=== PATIENT | male | born 1955 | race Caucasian/White ===

== ENCOUNTER → 2016-05-03 | Outpatient (CLI) | payer BC ==
[~2016-05-03] MED LIST: ABL/5 PO; AMPH30CA3 PO; AMPH30TA2 PO; CLX20 PO; ERGO1CAP35 PO; PRLSR20 PO; TAMS0.4C38 PO
[2016-05-03 11:49] LABS: CHOLESTEROL/HDL RATIO 3.8; FERRITIN 320.1 ng/ml (8.0-388.0)
== END | disposition home or self-care (01) ==
LOC: C.LAB 09:42
DX: E78.5 Hyperlipidemia, unspecified (principal); E61.1 Iron deficiency

== ENCOUNTER → 2017-01-09 | Outpatient (CLI) | payer BC ==
[2017-01-09 16:00] LABS: BLOOD UREA NITROGEN 20 mg/dl (7-18); BUN/CREATININE RATIO 15.1 (10-20); CALCIUM 9.3 mg/dl (8.5-10.1); CARBON DIOXIDE 26 mmol/L (21-32); CHLORIDE 108 mmol/L (98-107); GLUCOSE 96 mg/dl (70-99); POTASSIUM 4.1 mmol/L (3.5-5.1); SODIUM 139 mmol/L (136-145)
== END | disposition home or self-care (01) ==
LOC: C.LAB 14:03
DX: K21.9 Gastro-esophageal reflux disease without esophagitis (principal); E55.9 Vitamin D deficiency, unspecified; E53.8 Deficiency of other specified B group vitamins

== ENCOUNTER 2023-01-23 10:33 | Observation (INO) ==
--- NOTE | 2022-12-21 15:26 | PAT Medication Instructions ---
Medication Instructions Date of Service December 21, 2022 Home Medications albuterol sulfate 90 mcg/actuation aerosol inhaler 2 puff inhalation Q6H PRN SHORT OF BREATH bupropion HCl 150 mg 24 hr tablet, extended release 150 mg PO QAM cholecalciferol (vitamin D3) 125 mcg (5,000 unit) capsule 250 mcg PO DAILY citalopram 40 mg tablet 40 mg PO QAM ferrous sulfate 134 mg (27 mg iron) tablet 325 mg PO Q2D rosuvastatin 5 mg tablet (Crestor) 5 mg PO QPM aripiprazole 5 mg tablet (Abilify) 5 mg PO QAM cyanocobalamin (vitamin B-12) 500 mcg tablet 500 mcg PO QAM tamsulosin 0.4 mg capsule 0.4 mg PO QAM celecoxib 100 mg capsule (Celebrex) 100 mg PO BID methylphenidate HCl 20 mg tablet (Ritalin) 20 mg PO Q4H pantoprazole 40 mg tablet,delayed release (Protonix) 40 mg PO QAM ASK your surgeon for instructions celecoxib 100 mg capsule (Celebrex) 100 mg PO BID ASK your prescriber and surgeon aripiprazole 5 mg tablet (Abilify) 5 mg PO QAM DO NOT take the morning of surgery cholecalciferol (vitamin D3) 125 mcg (5,000 unit) capsule 250 mcg PO DAILY ferrous sulfate 134 mg (27 mg iron) tablet 325 mg PO Q2D cyanocobalamin (vitamin B-12) 500 mcg tablet 500 mcg PO QAM methylphenidate HCl 20 mg tablet (Ritalin) 20 mg PO Q4H Take morning of surgery With a small sip of water, OTHERWISE NOTHING TO EAT OR DRINK AFTER MIDNIGHT: albuterol sulfate 90 mcg/actuation aerosol inhaler 2 puff inhalation Q6H PRN SHORT OF BREATH (use if needed; please bring with you to hospital day of surgery if possible) bupropion HCl 150 mg 24 hr tablet, extended release 150 mg PO QAM citalopram 40 mg tablet 40 mg PO QAM tamsulosin 0.4 mg capsule 0.4 mg PO QAM pantoprazole 40 mg tablet,delayed release (Protonix) 40 mg PO QAM Take evening before surgery albuterol sulfate 90 mcg/actuation aerosol inhaler 2 puff inhalation Q6H PRN SHORT OF BREATH (if needed) rosuvastatin 5 mg tablet (Crestor) 5 mg PO QPM Other Notes If you have any questions please call us at [phone] or [phone] or [phone] or [phone]
--- NOTE | 2022-12-28 11:16 | Anesthesiology Consultation ---
Date of Service December 28, 2022 Assessment & Plan (1) Encounter for pre-operative examination: - Infectious disease screening: Per assessment on 12/28/22: No known infectious disease contacts or current infectious disease symptoms. No noted Covid positive test result in past 90 days. - Outpatient joint assessment: Pt currently scheduled for inpatient pathway. If surgeon requests review for outpatient joint pathway, patient is not recommended candidate for outpatient joint program from anesthesia standpoint based on available information. Chart Review Chart Review: Acceptable Risk for Surgery and Patient seen in Pre Admission Testing Teaching & Discussion Pre-Anesthesia Teaching/Discussion Notes: Instructed NPO after midnight before surgery,except medications with 15 cc of water. Medication instructions provided according to the PAT guidelines. History Surgery Operation Date: 01/23/23 07:00 Proposed Procedures p Right Total Knee Arthroplasty - Earle Conner MD Height/Weight Height: 5 ft 7 in Weight: 100.6 kg Allergies Allergy/AdvReac Type Severity Reaction Status Date / Time No Known Allergies Allergy Verified 12/20/22 11:32 Medications Home Medications Medication Instructions Recorded Confirmed Last Taken albuterol sulfate 90 mcg/actuation 2 puff inhalation Q6H PRN SHORT OF 04/17/21 12/20/22 Unknown aerosol inhaler BREATH' bupropion HCl 150 mg 24 hr tablet, 150 mg PO QAM 04/17/21 12/20/22 04/19/21 extended release cholecalciferol (vitamin D3) 125 250 mcg PO DAILY 04/17/21 12/20/22 04/19/21 mcg (5,000 unit) capsule citalopram 40 mg tablet 40 mg PO QAM 04/17/21 12/20/22 04/19/21 ferrous sulfate 134 mg (27 mg 325 mg PO Q2D 04/17/21 12/20/22 04/19/21 iron) tablet rosuvastatin 5 mg tablet (Crestor) 5 mg PO QPM 04/17/21 12/20/22 04/19/21 aripiprazole 5 mg tablet (Abilify) 5 mg PO QAM 04/18/21 12/20/22 04/19/21 cyanocobalamin (vitamin B-12) 500 500 mcg PO QAM 04/18/21 12/20/22 04/19/21 mcg tablet tamsulosin 0.4 mg capsule 0.4 mg PO QAM 02/04/0812/20/22 04/19/21 celecoxib 100 mg capsule (Celebrex) 100 mg PO BID 12/20/22 12/20/22 Unknown methylphenidate HCl 20 mg tablet 20 mg PO Q4H 12/20/22 12/20/22 Unknown (Ritalin) pantoprazole 40 mg tablet,delayed 40 mg PO QAM 12/20/22 12/20/22 Unknown release (Protonix) Past Medical History Medical History ADHD Anxiety and depression Arthritis Asthma BPH (benign prostatic hyperplasia) Calcium pyrophosphate deposition disease (CPPD) Elevated cholesterol GERD (gastroesophageal reflux disease) History of COVID-19 02/2020- no current symptoms Hx of Lyme disease Hypophosphatemia FANI (obstructive sleep apnea) No current device, "no symptoms anymore" Right knee DJD Vasovagal syncope 2 episodes (once as teen after blood draw, second several years ago after carpal tunnel surgery- stood up to put pants on to go home and passed out), no subsequent/recent issues Exercise / Class Metabolic Activity II 4-5 Yardwork/Stairs/Walk up hill (one FS (no CP, no SOB)) Past Family History Family History Father Family history of diabetes mellitus Other No family history of adverse response to anesthesia Past Surgical History Surgical History H/O carpal tunnel repair R/L H/O colonoscopy with polypectomy History of esophagogastroduodenoscopy (EGD) EGD (04/20/21): MAC at [facility] History of left knee replacement History of nasal septoplasty History of tooth extraction S/P trigger finger release Left hand Past Anesthesia History No Hx of Anesthesia Complications and No Family Hx of Anesthesia Complications History of PONV No Hx of PONV and No Hx of Motion Sickness Social History Smoking Status: Former smoker tobacco type: cigarettes Do You Dip or Chew Tobacco: No Smoking End Date: Quit 7 years ago Hx Alcohol Use: No Hx Substance Use: No substance use type: does not use Review of Systems Patient denies chest pain, shortness of breath, dyspnea on exertion, fever, chills, cough, wheezing, palpitations. Physical Exam Vital Signs VITALS BP 120/70 P 731 TEMP 98.3 SP02 94%RA RESP 18 PHYSICAL Full cervical extension range of motion. Full TMJ range of motion. TMD 3 finger breaths Mallampati Score 3 (large tongue) Dentition: intact,+ bridges Lungs: clear throughout to auscultation Cardiac: regular rate and rhythm, no murmurs noted Spine: normal Carotid arteries: negative bruit Extremities: no LE edema Short, thick neck Lab Results Anesthesia Preop Results Results Anesthesia Widget: WBC 6.30 K/ul (4.8-10.8) 12/28/22 Hgb 14.2 g/dl (14.0-18.0) 12/28/22 Hct 40.6 % (42.0-52.0) L 12/28/22 Plt 287 K/uL (130-400) 12/28/22 Na 139 mmol/L (136-145) 12/28/22 K 4.0 mmol/L (3.5-5.1) 12/28/22 Cl 108 mmol/L (98-107) H 12/28/22 CO2 25 mmol/L (21-32) 12/28/22 BUN 27 mg/dl (6-23) H 12/28/22 Creat 1.24 mg/dl (0.6-1.4) 12/28/22 Glucose Level 98 mg/dl (70-99(Fasting)) 12/28/22 PT 10.9 Seconds (9.0-12.0) 12/28/22 PTT 26.0 Seconds (21.0-31.0) 12/28/22 INR 1.0 (0.9-1.1) 12/28/22 Blood Type O Negative 12/28/22 Antibody Screen NEGATIVE 12/28/22 Testing Electrocardiogram Date: 12/28/22 Findings: + NSR @ (70) Chest X-Ray Date: 12/28/22 FINDINGS: No pneumothorax. No pleural effusions. There is a punctate calcified granuloma within the right lung base, unchanged. Otherwise, the right lung is clear. Stable linear scarlike densities within the left lung base with slight elevation of the left hemidiaphragm. This is also similar to the prior study. No new focal lung consolidations to suggest pneumonia. No evidence for pulmonary edema. The cardiac silhouette is normal in size. IMPRESSION: No significant change compared to the prior study. No acute process.
--- NOTE | 2023-01-19 10:51 | History & Physical Report ---
Date of Service January 19, 2023 Assessment & Plan (1) Right knee DJD: 67-year-old gentleman with multiple medical comorbidities 8 years out from left knee replacement with advanced medial compartment arthritis of his right knee. He is really not Enspryng further conservative management. Happy with the left knee would just like to have his right knee replaced. Plan: Taken to the operating room do a right total knee replacement. The risks Mente this procedure explained the patient include not limited to DVT PE infection neurological injury vascular bleeding palm pain limb range of motion stiffness fairly with symptoms incomplete relief of symptoms need for further surgery in the future etc. Patient understands and desires to proceed. Informed consent was obtained. We will plan on stay in the hospital overnight. Likely discharge postoperative day 1. Plan on DVT prophylaxis including thigh- high teds, SCDs, aspirin twice a day. (2) History of left knee replacement: History of Present Illness Chief Complaint: . Right knee pain and discomfort. Primary Care Provider: Luis Enrique Martinez DO . Patient is a 67-year-old gentleman who presents for surgical treatment of his right knee. He is about 8 years out from a left knee replacement which was done well. Over the past several years he developed similar symptoms right knee. Describes a global pain in his knee. This become more debilitating particular over the past year. He is taken oral medicines without much relief. Not really any other treatment. He is try to maintain an activity level but have more difficulty doing this. More he is up and on it the more it hurts. Limps more today goes on. Happy with the left knee would like to have his right knee replaced. Allergies Allergy/AdvReac Type Severity Reaction Status Date / Time No Known Allergies Allergy Verified 12/20/22 11:32 Home Medications Medication Instructions Recorded Confirmed Type albuterol sulfate 90 mcg/actuation 2 puff inhalation Q6H PRN SHORT OF 04/17/21 12/20/22 History aerosol inhaler BREATH' bupropion HCl 150 mg 24 hr tablet, 150 mg PO QAM 04/17/21 12/20/22 History extended release cholecalciferol (vitamin D3) 125 250 mcg PO DAILY 04/17/21 12/20/22 History mcg (5,000 unit) capsule citalopram 40 mg tablet 40 mg PO QAM 04/17/21 12/20/22 History ferrous sulfate 134 mg (27 mg 325 mg PO Q2D 04/17/21 12/20/22 History iron) tablet rosuvastatin 5 mg tablet (Crestor) 5 mg PO QPM 04/17/21 12/20/22 History aripiprazole 5 mg tablet (Abilify) 5 mg PO QAM 04/18/21 12/20/22 History cyanocobalamin (vitamin B-12) 500 500 mcg PO QAM 04/18/21 12/20/22 History mcg tablet tamsulosin 0.4 mg capsule 0.4 mg PO QAM 04/18/21 12/20/22 History celecoxib 100 mg capsule (Celebrex) 100 mg PO BID 12/20/22 12/20/22 History methylphenidate HCl 20 mg tablet 20 mg PO Q4H 12/20/22 12/20/22 History (Ritalin) pantoprazole 40 mg tablet,delayed 40 mg PO QAM 12/20/22 12/20/22 History release (Protonix) Past Med/Surg History Medical History Asthma Hx of Lyme disease Vasovagal syncope 2 episodes (once as teen after blood draw, second several years ago after carpal tunnel surgery- stood up to put pants on to go home and passed out), no subsequent/recent issues Right knee DJD Arthritis BPH (benign prostatic hyperplasia) GERD (gastroesophageal reflux disease) Anxiety and depression Elevated cholesterol History of COVID-19 02/2020- no current symptoms FANI (obstructive sleep apnea) No current device, "no symptoms anymore" ADHD Calcium pyrophosphate deposition disease (CPPD) Hypophosphatemia Surgical History History of esophagogastroduodenoscopy (EGD) EGD (04/20/21): MAC at [facility] History of left knee replacement H/O colonoscopy with polypectomy History of tooth extraction S/P trigger finger release Left hand History of nasal septoplasty H/O carpal tunnel repair R/L Family History Father Family history of diabetes mellitus Other No family history of adverse response to anesthesia Social History Smoking Status: Former smoker Age Started Using Tobacco: 61; Age Quit Using Tobacco: 63; packs per day: 1; Second Hand Exposure: No; Do You Dip or Chew Tobacco: No; Hx Alcohol Use: No Hx Substance Use: No Preferred Language: Macedonian Communication Ability: Effective Rattling Machine Tender Required: No Beliefs That Will Affect Care: None Current Living Situation: Spouse Current Living Situation Comment: DOES NOT LIVE WITH >LIVES ALONE Feels Safe at Home: Yes Assistive Devices: Hearing Aid - Bilateral Review of Systems All systems reviewed & are unremarkable except as noted in HPI & below. Physical Exam . Physical examination reveals a pleasant middle-age gentleman. He walks with a slight bit of a limp. Examination of the right knee reveals slight varus alignment. He is tender with medial joint line. Small knee effusion. Range of motion is 5-1 20. No instability. Examination left knee reveals well-healed incision. No skin swelling. Range of motion 0-1 20. Good straight leg raise. Constitutional WD/WN, vitals as above Respiratory normal respiratory effort, lungs clear to auscultation Cardiovascular RRR, no murmur, no edema Gastrointestinal (Abdomen) normal bowel sounds, soft, nontender, no hepatosplenomegaly Results & Data Results & Data Laboratory Results . Diagnostic Findings . X-rays of the right knee were reviewed. Shows advanced medial compartment arthritis of most severe on the 40 degree flexion films. Is got complete loss of the joint space. Not much osteophyte formation. Small knee effusion. X-rays left knee whelp well-positioned total knee replacement. No signs of problems. PG Care Time/CCT Total # of Minutes Spent Total Time Spent with Patient: Total time spent is greater than 50% in coordination of care (as documented) at patient's floor/unit and/or counseling patient: Coding Level of Care Code None Diagnoses Right knee DJD M17.11 History of left knee replacement Z96.652
[~2023-01-23 10:33] MED LIST changes: -ABL/5 PO; +ACETAMINOPHEN 500 MG TAB PO SCH; -AMPH30CA3 PO; -AMPH30TA2 PO; +BUPIVACAINE 0.25% PF 30 ML VIAL ONE; +BUPIVACAINE 0.5 % 5 MG/1 ML PF 10ML VIAL ONE; +BUPIVACAINE LIPOSOME/PF 266 MG, BUPIVACAINE/EPINEPHRINE 50 ML, SODIUM CHLORIDE 0.9% PF ... INFIL SCH; -CLX20 PO; +CeleBREX 200 MG CAP PO SCH; -ERGO1CAP35 PO; +FAMOTIDINE 20 MG TAB PO SCH; +LR 500ML BOLUS, THEN 15ML/HR IV SCH; +LR 60ML/HR IV SCH; +METOCLOPRAMIDE HCL 10 MG TABLET PO SCH; -PRLSR20 PO; +Scopolamine 1 MG TDSY TD SCH; -TAMS0.4C38 PO; +TRANEXAMIC ACID 1,000 MG **IV Intra-op IV SCH; +ceFAZolin 2000MG 2,000 MG/15 ML SYR IV SCH; +dexAMETHasone**PF** 10 MG/ML VIAL IV SCH
[2023-01-23] MEDS ORDERED: fentaNYL citrate PF 100 MCG/2 ML VIAL IV PRN (10:48)
[2023-01-23] MEDS ORDERED: ATROPINE SULFATE 0.1 MG/ML 10ML SYR IV PRN (10:48)
[2023-01-23] MEDS ORDERED: ePHEDrine sulfate 50 MG/ML AMP IV PRN (10:48)
[2023-01-23] MEDS ORDERED: ONDANSETRON INJ 2 MG/ML 2 ML VIAL IV PRN ×2 (10:48→15:53)
[2023-01-23] MEDS ORDERED: fentaNYL citrate PF 100 MCG/2 ML VIAL ONE (11:02)
[2023-01-23] MEDS ORDERED: MIDAZOLAM HCL 1 MG/ML 2ML VIAL ONE (11:02)
--- NOTE | 2023-01-23 12:17 | History & Physical Bridge Note ---
Date of Service January 23, 2023 History & Physical Bridge Note I have examined the patient, reviewed the History & Physical and in the interval since the performance of the History & Physical I have noted the following changes of clinical significance: no changes noted
[2023-01-23] MEDS ORDERED: BUPIVACAINE/EPINEPHRINE 0.25% 1:200,000 30 ML VIAL ONE (12:20)
[2023-01-23] MEDS ORDERED: SODIUM CHLORIDE 0.9% PF 50 ML VIAL ONE (12:22)
[2023-01-23] MEDS ORDERED: PROPOFOL IV EMULSION 10 MG/ML 20 ML VIAL IV ONE (13:05)
[2023-01-23] MEDS ORDERED: PHENYLEPHRINE 100MCG/ML 5ML SYR ONE (13:06)
[2023-01-23] MEDS ORDERED: ePHEDrine sulfate 50 MG/5 ML SYR ONE (13:06)
--- NOTE | 2023-01-23 14:28 | Operative Report ---
PG Post Operative Report Pre & Post Diagnosis Operation Date: 01/23/23 12:30 Pre-Op Diagnosis: Right Knee Degenerative Joint Disease Post-Op Diagnosis: Right Knee Degenerative Joint Disease I identified the patient and participated in the time-out.: Yes Procedure Operation Date: 01/23/23 12:30 Actual Procedures p Right Total Knee Arthroplasty(Right) - Earle Conner MD Surgeon Earle Conner MD [employer] Ken Farrell PA-C Estimated Blood Loss 50 Findings Consistent with Post-Op Diagnosis Operative findings revealed advanced medial compartment arthritis. He had full- thickness cartilage loss in the several areas of the medial femoral condyle medial tibial plateau. It was not extensive. He had no signet bony eburnation. The lateral compartment was pretty well-preserved. Some grade 3 changes in the patellofemoral compartment. Moderate-sized joint effusion. He did have a varus deformity to his knee. Specimens Right knee sent for pathology. Anesthesia Type Spinal MAC Complications none Disposition Accompanied Patient To Recovery: No Indications Patient is a 67-year-old gentleman who is status post a left knee replacement done about 8 years ago. Over the past year or 2 he has developed increased pain discomfort in his right knee. He was not demonstrating further conservative management and wanted to proceed with right knee replacement and quite happy with his left knee. Description of Procedure Operative implants consist of: 1 Biomet Vanguard size 70 right posterior stabilized femoral component. 2. Biomet size 75 tibial tray. 3. 10 mm post stabilized polyethylene insert. 4. 31 x 8 all poly patella. The patient was taken to the operating, identified, placed on the operating table supine position. All contractors were appropriately padded. IV antibiotics tried by anesthesia team. A spinal anesthetic and abductor canal block had provided in the holding area. The right Tetrick was then placed. The right lower extremity was then prepped and draped in usual sterile fashion. The right leg was elevated exsanguinated with use of an Esmarch and the turn was placed at 300 mmHg. An anterior approach to the right knee was then performed to longitudinal incision centered over the patella. Sharp dissection was carried through subcutaneous tissue down the extensor mechanism. Medial parapatellar arthrotomy incision was made. Some subperiosteal dissection was carried out medially. The fat pad was resected from Neath patella tendon. Lateral patellofemoral ligament was released. Patella subluxated laterally knee was flexed. The osteophytes taken off distal femur. The ACL and PCL were then released from the distal femur and the tibia subluxated anteriorly. The external tibial alignment jig was then placed in the interface of the tibia and adjusted 12 mm medially. Proximal tibial cut was made remove about 1 to 2 mm of bone from the medial side. The tibia was sized to a size 75. Attention drawn the femur. The distal femur examined the sharp drop with intramedullary canal was suction. A right 6 degree valgus cutting guide was placed. Distal femoral cutting block was pinned in place. Distal femoral cut was made to take an additional 3 mm of bone off distal femur. The femur was then sized to a size 70. The AP cutting block was pinned parallel to the epicondylar axis which was 3 degrees of ext ernal rotation. The anterior cut, anterior chamfer, posterior cut, posterior chamfer cuts were made. The box cutting guide was placed in just slight lateral and the box cut was made. The knee was flexed. The remnants of the medial and lateral menisci were excised. The osteophytes taken off the posterior aspect the femur. Trial femoral component was placed. The tibial tray was pinned in maximum external rotation and the drill and stem punch were used to create defect in proximal tibia for the tibial tray. I then trialed the knee and the 10 mm insert fit most appropriately. Attention drawn the patella. The patella was cleaned of all soft tissues. Patella thickness measured 23 mm in thickness was cut down to 15. Was sized to a size 31 patella. The locals were drilled for 31 patella. The lateral osteophyte was removed. Patella button was placed. Knee was taken through range of motion patella tracked nicely with no thumbs test. Attention drawn to placing permanent components. Nupathe all trial components were removed. Bone plug was placed in the distal femur limit blood loss. Double batch Palacos G cement was mixed. Biomet Vanguard size 70 right posterior stabilized femoral component, size 75 tibial tray, a 10 mm post stabilized polyethylene insert, and a 31 x 8 all Paller patella then cemented in place. Knee was brought out into full extension till cement hardened. Final cement check was then performed. The pericapsular tissues were injected with total of 100 cc of combination of 20 cc of Exparel, 30 cc normal saline, 50 cc of quarter percent Marcaine with epinephrine. Patient did receive 1 g tranexamic acid. The tourniquet was let down for final tourniquet time 59 minutes. Hemostasis reduced electrocautery. Extensor mechanism then closed with combination 1 PDS suture #1 Vicryl suture in a [id number] fashion. The extensor mechanism checked found to be intact and the subcutaneous tissues then closed with 2 Dexon suture in buried interrupted fashion skin was closed skin aravind. Leg was then cleaned and dried and sterile dressed with Xeroform, 4 x 4's, sterile ABD pad, sterile cast padding, José Miguel bandage were applied. Patient then transferred to the recovery room in stable condition. Patient tolerated procedure well and there were no complications. Ken Farrell, my physician high school assistant football coach, was present for the entire procedure. His assistance was essential and required for appropriate patient positioning, prepping and draping, surgical exposure, performing the technical details of the operation, placement the implants, closure of the wound, and placement of the sterile bandage. I attest to the content of the Intraoperative Record and any orders documented therein. Any exceptions are noted below.
--- NOTE | 2023-01-23 15:32 | Anesthesiology Progress Note ---
Date of Service January 23, 2023 Anesthesia Post Procedure Vital Signs Vital Signs: Temp Pulse Pulse Resp BP Pulse Ox O2 Del Method 01/23/23 15:25 77 13 122/73 93 Room Air 01/23/23 15:15 36.5 C 85 14 110/68 94 Room Air 01/23/23 15:05 77 14 111/56 L 96 Oxymask 01/23/23 14:55 74 16 136/67 95 Oxymask 01/23/23 14:45 80 12 99/52 L 100 Oxymask 01/23/23 14:35 81 12 126/68 96 Oxymask 01/23/23 14:28 36.0 C L 86 10 L 102/56 L 96 Oxymask 01/23/23 10:57 36.5 C 74 18 120/72 95 Room Air O2 Flow Rate 01/23/23 15:25 01/23/23 15:15 01/23/23 15:05 4 01/23/23 14:55 4 01/23/23 14:45 4 01/23/23 14:35 4 01/23/23 14:28 6 01/23/23 10:57 Transfer of Care Handoff Completed per policy Notes Mental Status: alert / awake / arousable Patient Amnestic to Procedure: Yes Nausea / Vomiting: adequately controlled Pain: adequately controlled Airway Patency, RR, SpO2: stable & adequate BP & HR: stable & adequate Hydration State: stable & adequate Anesthetic Complications: no major complications apparent
--- NOTE | 2023-01-23 15:45 | XRay Report ---
RIGHT KNEE 2 VIEWS History: Right total knee arthroplasty. Degenerative arthritis. Postop. FINDINGS: The patient is status post a right total knee arthroplasty. The hardware is intact. No frac ture or dislocation. Skin aravind are in place. IMPRESSION: Right total knee arthroplasty. No evidence for hardware complication. ACT 112: Negative or not required by law. Electronically signed by: Jeremy Foster M.D. 01/23/2023 3:44 PM
[2023-01-23] MEDS ORDERED: ALBUTEROL HFA 8 GM INHALER INH PRN (15:53)
[2023-01-23] MEDS ORDERED: NALOXONE HCL 0.4 MG/1 ML VIAL/CARP IV PRN (15:53)
[2023-01-23] MEDS ORDERED: HYDROmorphone INJ 0.5 MG/0.5 ML SYR IV PRN (15:53)
[2023-01-23] MEDS ORDERED: NO NSAIDS SCH (15:53)
[2023-01-23] MEDS ORDERED: METOCLOPRAMIDE HCL INJ 5 MG/ML 2 ML VIAL IV PRN (15:53)
[2023-01-23] MEDS ORDERED: ALUMINUM/MAGNESIUM SUSP 30 ML UDC PO PRN (15:53)
[2023-01-23] MEDS ORDERED: MAGNESIUM HYDROXIDE SUSP 30 ML UDC PO PRN (15:53)
[2023-01-23] MEDS ORDERED: bisacodyL 10 MG SUPP PR PRN (15:53)
[2023-01-23] MEDS: Scopolamine CHECK PATCH PLACEMENT SCH (16:05)
[2023-01-23] MEDS: SODIUM CHLORIDE 0.9% 1,000 ML IV SCH (16:12)
[2023-01-23] MEDS ORDERED: FERROUS SULFATE 325 MG TAB PO SCH (17:00)
[2023-01-23] MEDS ORDERED: CHOLECALCIFEROL 5,000 UNITS 125 MCG TAB PO SCH (17:00)
[2023-01-23] MEDS ORDERED: PNEUMOCOCCAL VACCINE (PCV20) 20-VAL CONJ-DIP CRM/PF 0.5 ML SYR IM ONE (17:15)
[2023-01-23] MEDS: oxyCODONE HCL IR 5 MG TAB (IMMEDIATE RELEASE) PO PRN (17:19)
[2023-01-23] MEDS: ASCORBIC ACID 500 MG TAB PO SCH (17:40)
[2023-01-23] MEDS ORDERED: TRANEXAMIC ACID / 0.7% NACL 1,000 MG/100 ML BAG IV SCH (20:30)
[2023-01-23] MEDS: DOCUSATE SODIUM 100 MG CAP PO SCH (20:43)
[2023-01-23] MEDS: ASPIRIN 81 MG ECTAB PO SCH (20:44)
[2023-01-23] MEDS: ACETAMINOPHEN 500 MG TAB PO SCH (20:47)
[2023-01-23] MEDS: ceFAZolin 2000MG 2,000 MG/15 ML SYR IV SCH (20:48)
[2023-01-23] MEDS ORDERED: ROSUVASTATIN CALCIUM 5 MG TAB PO SCH (21:00)
[2023-01-23] MEDS ORDERED: SENNA 8.6 MG TAB PO SCH ×2 (21:00)
[2023-01-24] MEDS: Scopolamine CHECK PATCH PLACEMENT SCH ×2 (00:23→07:43)
[2023-01-24] MEDS: oxyCODONE HCL IR 5 MG TAB (IMMEDIATE RELEASE) PO PRN ×2 (00:25→06:38)
[2023-01-24] MEDS: SODIUM CHLORIDE 0.9% 1,000 ML IV SCH (02:44)
[2023-01-24] MEDS: ceFAZolin 2000MG 2,000 MG/15 ML SYR IV SCH (04:25)
[2023-01-24 07:02] LABS: Hematocrit (blood only) 35.4 % (42.0-52.0); Hemoglobin 12.3 g/dl (14.0-18.0); Mean Corpuscular Hemoglobin 34.1 pg (25.0-34.0); Mean Corpuscular Hgb Conc 34.7 g/dL (32.0-36.0); Mean Corpuscular Volume 98.1 fL (80.0-100.0); Mean Platelet Volume 9.3 fL (9.4-12.4); Platelet Count 230 K/uL (130-400); RDW Coefficient of Variation 11.9 % (11.5-14.5); RDW Standard Deviation 43.2 fL (36.4-46.3); Red Blood Count 3.61 M/uL (4.70-6.10); White Blood Count 10.47 K/ul (4.8-10.8)
--- NOTE | 2023-01-24 07:13 | Surgery Progress Note ---
Date of Service January 24, 2023 Assessment & Plan (1) Status post right knee replacement: Plan: 67-year-old gentleman postop day 1 from right knee replacement doing pretty well. His pain is controlled. He is neurologically intact. Medically appears stable. He is hoping to go home today. Plan: 1. DVT prophylaxis including thigh-high teds, SCDs, aspirin twice a day. 2. PT OT. Weight-bear as tolerated right total knee protocol. 3. Pain control doing okay with current pain regimen. 4. Disposition plan to discharge home with some home health later today if he does okay in therapy. Admission and Anticipated Discharge Date Admission Date: January 23, 2023 Subjective 67-year-old gentleman postop day 1 from right knee replaced. He is doing well. Pain is controlled. Had a pretty good night. No chest pain or shortness of breath. Not feeling dizzy or lightheaded. Hoping to go home today. Physical Exam Physical Exam: Physical examination was a pleasant middle-age male. He is lying in bed. He is awake alert and oriented. Examination of the right leg reveals dressing clean dry and intact he can do a good straight leg raise. He can dorsiflex and plantarflex his foot appropriately. Respiratory: normal respiratory effort, lungs clear to auscultation Cardiovascular: RRR, no murmur, no edema Gastrointestinal (Abdomen): normal bowel sounds, soft, nontender, no hepatosplenomegaly Results & Data Vital Signs (Past 12 Hours) Vital Signs Temp Pulse Resp BP Pulse Ox O2 Del Method 01/24/23 04:00 36.6 C 80 16 110/60 94 Room Air 01/24/23 00:00 36.6 C 73 18 117/70 93 Room Air 01/23/23 20:50 Room Air Laboratory Results Hemoglobin was 12.3. Hematocrit 34.4. Electrolytes are pending. PG Care Time/CCT Total # of Minutes Spent Total Time Spent with Patient: Total time spent is greater than 50% in coordination of care (as documented) at patient's floor/unit and/or counseling patient: Coding Level of Care Code None Diagnoses Status post right knee replacement Z96.651
[2023-01-24 07:38] LABS: BUN Creatinine Ratio 18.3 (10-20); Creatinine Clr Calc Pharmacy 70.5 ml/min; Est GFR (African American) 75.4 ml/min; Potassium 4.1 mmol/L (3.5-5.1)
[2023-01-24] MEDS ORDERED: dexAMETHasone 10 MG in SYRINGE 0 ML IV SCH (08:00)
[2023-01-24] MEDS ORDERED: METHYLPHENIDATE HCL 10 MG TABLET PO SCH (08:00)
[2023-01-24] MEDS: ASCORBIC ACID 500 MG TAB PO SCH (08:34)
[2023-01-24] MEDS: ASPIRIN 81 MG ECTAB PO SCH (08:34)
[2023-01-24] MEDS: DOCUSATE SODIUM 100 MG CAP PO SCH (08:34)
[2023-01-24] MEDS: ACETAMINOPHEN 500 MG TAB PO SCH (08:41)
[2023-01-24] MEDS ORDERED: MULTIVITAMIN TAB PO SCH (09:00)
[2023-01-24] MEDS ORDERED: PRESERVISION AREDS PO SCH (09:00)
[2023-01-24] MEDS ORDERED: ARIPiprazole 5 MG TAB PO SCH (09:00)
[2023-01-24] MEDS ORDERED: CYANOCOBALAMIN (B-12) 500 MCG TABLET PO SCH (09:00)
[2023-01-24] MEDS ORDERED: buPROPion XL 150 MG TABCR PO SCH (09:00)
[2023-01-24] MEDS ORDERED: PANTOprazole 40 MG TAB PO SCH (09:00)
[2023-01-24] MEDS ORDERED: INFLUENZA VACCINE HIGH-DOSE (HD-IIV4) PF 65+ 0.7mL SYR IM ONE (09:00)
[2023-01-24] MEDS ORDERED: TAMSULOSIN HCL 0.4 MG CAP PO SCH (09:00)
[2023-01-24] MEDS ORDERED: CITALOPRAM 40 MG TAB PO SCH (09:00)
--- NOTE | 2023-01-25 15:58 | Discharge Summary ---
Date of Service January 25, 2023 Discharge Data Procedures Performed Operation Date: 01/23/23 12:30 Actual Procedures p Right Total Knee Arthroplasty(Right) - Earle Connre MD Hospital Course (1) Status post right knee replacement: This is a 67 year old patient admitted on 01/23/23 and underwent total knee arthroplasty. He tolerated the procedure well and there were no complications. Transferred to the PACU post op and later to the orthopedic floor for further care. He was given ancef for antibiotic prophylaxis. He was also given VANE stockings, SCDs, and aspirin for DVT prophylaxis. Hemoglobin, hematocrit, and vital signs were monitored during his hospital stay and remained stable. Did not require any blood transfusions. There were no complications during his hospital stay. By post op day #1 the patient was tolerating a regular diet, pain was reasonably controlled with oral pain medicine, and he was participating in physical therapy. On post op day #1 the patient was discharged home and set up with home health care. He was given printed discharge instructions including prescriptions for extra strength tylenol, aspirin, cefadroxil, ketorolac, zofran, senokot, flomax, and oxycodone. Continue physical therapy, weight bearing as tolerated. Continue VANE stockings. Follow up approximately 2 weeks post op or sooner if there are problems or concerns. Coding Level of Care Code None Diagnoses Status post right knee replacement Z96.651
== END 2023-01-24 11:52 | disposition home health service (06) ==
LOC: ASU 10:33 → 3E 10:33
DX: M22.2X1 Patellofemoral disorders, right knee; Z79.82 Long term (current) use of aspirin; M17.11 Unilateral primary osteoarthritis, right knee; K21.9 Gastro-esophageal reflux disease without esophagitis; M25.461 Effusion, right knee; Z87.891 Personal history of nicotine dependence; Z01.812 Encounter for preprocedural laboratory examination; E66.9 Obesity, unspecified; Z78.9 Other specified health status; J45.909 Unspecified asthma, uncomplicated; Z79.1 Long term (current) use of non-steroidal anti-inflammatories (NSAID); Z68.35 Body mass index [BMI] 35.0-35.9, adult; Z01.810 Encounter for preprocedural cardiovascular examination; G47.33 Obstructive sleep apnea (adult) (pediatric); Z79.899 Other long term (current) drug therapy; M21.161 Varus deformity, not elsewhere classified, right knee; Z01.818 Encounter for other preprocedural examination